=== PATIENT | male | born 1985 | race Caucasian/White ===

== ENCOUNTER 2021-11-11 00:42 | Emergency (ER) | payer MEDICAID, OTHER ==
[~2021-11-11] VITALS: Ht 172.7 cm; Wt 81.6 kg
--- NOTE | 2021-11-11 01:00 | NUR ---
BIBSELF C/O SI WITH NO PLAN. REQUESTING [facility] ADMISSION. PT A/OX3. TOLERATING R/A WELL WITH NO SOB. PT IN GOWN, BELONGINGS PLACED IN STORAGE ROOM, AND WANDED BY SECURITY. PT AMBULATORY WITH STEADY GAIT. ALL NEEDS MET AT THIS TIME. SAFETY MEASURES IN PLACE.
[2021-11-11 01:28] LABS: BASOPHILS % (AUTO) 0.4 % (0.0-2.0); EOSINOPHILS % (AUTO) 1.6 % (0.0-6.0); HEMATOCRIT 44 % (39-51); LYMPHOCYTES # (AUTO) 1.9 K/uL (0.8-4.8); MEAN CORPUSCULAR HGB CONC 34 g/dl (31.0-36.0); MEAN CORPUSCULAR VOLUME 92 fL (80-96); MONOCYTES # (AUTO) 0.5 K/uL (0.1-1.30); MONOCYTES % (AUTO) 5.8 % (2.0-12.0); NEUTROPHILS # (AUTO) 5.5 K/uL (1.8-8.9); NEUTROPHILS % (AUTO) 68.2 % (43.0-81.0); PLATELET COUNT (AUTO) 192 K/uL (150-450); RED BLOOD CELL COUNT(AUTO) 4.76 MIL/uL (4.5-6.0); WHITE BLOOD COUNT (AUTO) 8.1 K/uL (4.3-11.0)
[2021-11-11 01:45] LABS: ALBUMIN 4.2 g/dL (3.4-5.0); BILIRUBIN,DIRECT 0.1 mg/dL (0.0-0.2); BILIRUBIN,TOTAL 0.3 mg/dL (0.2-1.0); CALCIUM, SERUM 8.8 mg/dL (8.5-10.1); POTASSIUM 3.8 mmol/L (3.5-5.1); TOTAL PROTEIN, SERUM 7.6 g/dL (6.4-8.2)
--- NOTE | 2021-11-11 02:05 | NUR ---
Note janieone in EDM - 11/11/21 at 0206 by SHAMAR ELKIN C/O SI WITH NO PLAN. [facility]. PT A/OX3. TOLERATING R/A WELL WITH NO SOB. PT IN GOWN, BELONGINGS PLACED IN STORAGE ROOM, AND WANDED BY SECURITY. PT AMBULATORY WITH STEADY GAIT. ALL NEEDS MET AT THIS TIME. SAFETY MEASURES IN PLACE.
[2021-11-11] MEDS ORDERED: ARIPIPRAZOLE 5 MG TABLET PO ONE (02:30)
[2021-11-11] MEDS ORDERED: ARIPIPRAZOLE 2 MG TABLET ONE (02:33)
--- NOTE | 2021-11-11 07:19 | NUR ---
URINE SAMPLE OBTAINED AND SENT TO LAB
--- NOTE | 2021-11-11 08:23 | NUR ---
THE PATIENT IS RECEIVED IN ER #18. THE PATIENT IS ALERT AND ORIENTED X4. DENIES PAIN. IN ROOM AIR AND DENIES SOB. RESPIRATION REGULAR AND UNLABORED. THE PATIENT IS SERVED BREAKFAST. JAVIER FOOD WELL.
[2021-11-11 08:42] LABS: BILIRUBIN,URINE SMALL (NEGATIVE); COLOR,URINE YELLOW (YELLOW); LEUKOCYTE ESTERASE ,URINE NEGATIVE (NEGATIVE); NITRITE, URINE NEGATIVE (NEGATIVE); PROTEIN,URINE NEGATIVE (NEGATIVE); UGLUCOSE NEGATIVE (NEGATIVE); UROBILINOGEN,URINE 0.2 EU/dL (0.2)
[2021-11-11 09:17] LABS: RBC,URINE 0-2 /HPF (0-2)
[2021-11-11 09:18] LABS: BACTERIA,URINE Few /HPF (None Seen)
--- NOTE | 2021-11-11 10:37 | NUR ---
SS consult: SS Consult requested for SI, homelessness & drug abuse. The pt. is a 36-year-old male patient who came into ED due to: suicidal ideation & homicidal ideation per EMR. Upon SS consult, the pt. is Alert & Oriented x 4 and makes good eye contact. The pt. appears well-groomed with depressed mood & affect. Pt.'s speech is clear. Per pt. he states he is having thoughts of suicide with no plan. Pt. has homicidal thoughts with no specific person in mind. Per pt. he also has auditory hallucinations, not commanding. SW offered patient voluntary admission to psychiatric facility for treatment and pt. is agreeable. SW explored pt.'s living situation. Patient states he has been experiencing homelessness for the past 5 years and stays in the [facility]. SW explored pt.'s mental health Hx. Patient stated that he has been diagnosed with Major Depression, PTSD, Schizoaffective disorder. Pt. states he has been prescribed Maupin, Prozac and Abilify but is non-compliant with the medications. SW provided resources for homelessness and pt. accepted them. SW explored pt.'s drug & ETOH use. Pt. states he uses Methamphetamine, Heroin, Cannabinoids and alcohol use. This group social worker provided support with motivational interviewing, along with education regarding opioid dependence, brief intervention and referral to treatment. SW offered pt. addiction resources and the following medication assisted treatment and pt. accepted them. [facility]: [address] [place] [address] Intake hours: 5:45am-9:00am, walk-ins Tuesday, Tuesday, [facility]: [address] [place] [address] Intake hours: 5:45am-12:30pm, Tuesday and [facility]: [address] [place] [address] Intake hours: 8:00am-2:00pm, Tuesday through Tuesday Pt. states he has tried MAT treatment before and is not currently interested. Pr. is currently in the relapse stage of change. Per pt. she is ambulatory and independent with all his ADL's. CM explored pt.'s support system. Pt. states his brother, Balbir Christianson [phone] is his support system. Plan: CM faxed clinicals to [facility] [[address] [place] [address] FAX:[phone]] for inpatient psychiatric treatment. Pt. was provided with mental health, homeless resources and addiction resources and pt. accepted them. Pt. signed homeless waiver and it was placed in the chart. Year-round shelters: [facility] [place] [address] ; [facility] [address] [place] [address]; [facility] [id number] [facility] [address] Hygiene: [facility] [address] [address] [facility]. [place] ; [facility] [address] [facility] ; [facility] [address] [facility] . Food Resources: [place] [facility] at [facility]- [address] [facility]; Meet Each Need with Dignity ([facility]) [address] [facility]; [facility] [address] [facility]; [facility] 8521 [facility]. Mental Health resources provided: [facility] [address] [place] [address] ; [facility] [address] [facility] [address], [place] [address] ; [place] [facility] [address] [place] [address] ; [facility] [address] [place] [address] Healthcare Clinics: [facility] [address] [facility], [address] [place]. [place] ; [facility] [address] [facility] [address] [facility] [address]; [facility] [address] [facility] [place] [address] [phone] Counseling--Outpatient [facility] [address] [facility], [place] [address] (Specializes in in-depth psychotherapy for emotional distress: anxiety, depression, interpersonal conflicts, life transitions, childhood abuse) [facility] [address] [place] [address] (Assist with solving problem marital difficulties, separation & divorce, aging parents, & grief, chronic & terminal illness) [facility] [address] [place] [address] (Deal with loss & grief, anxiety, marital difficulties) Homebound/Mental Health Services [address] [facility] [address] [place] [address] (Provide in-home mental services to people who are incapable of leaving their homes) [facility] of [facility] Elderly [facility] [address] [place] [address] [facility] [address] [facility] [place] [address] PSYCHIATRIC OUTPATIENT SERVICES [facility] Partial Hospitalization and Intensive Outpatient Program (Managed Care and [place] Only)[address] [place]. [facility] [phone] [facility] Partial Hospitalization and Outpatient [id number] [facility]. [address] [place], [place] [phone] [facility] [address] [place], [place] [phone] [facility] Partial Hospitalization and Outpatient Grukktx75056 [facility] [place], [phone] Substance Abuse resources provided included: [facility] Substance Abuse Self-Helpline ([facility]) ; C[facility]LP [address] [facility]. [place] [address] ; [facility] [address] [facility] [address] ; [facility] [address] [facility] [phone] ; [facility] [address] [facility] [phone] ; [facility] [address] [facility] [address] ; [facility] 901 [facility] [phone] ; [facility] Substance Abuse Helpline([facility] ; [facility] ; [facility] [place]; [facility] [place]; [facility] [place]; [facility] [place]; [place]; [facility] [place]; [facility]'s [place], [facility] [place]; Alcoholics Anonymous -SFV; Jd-Srcf-Opuqwtt ; Marijuana Anonymous -SFV; Narcotics Anonymous www.na.org;
--- NOTE | 2021-11-11 10:53 | NUR ---
CM faxed clinicals to [facility] [[address] [place] [address] [place], [place] [address]FDJLYTJ TEL:[phone] fax:[phone] ] for voluntary psychiatric treatment. Per [facility] they have received clinicals.
--- NOTE | 2021-11-11 13:20 | NUR ---
patient verbalized "i am not suicidal or homicidal". MD notified and aware.
[2021-11-11 13:25] VITALS: BP 118/77
--- NOTE | 2021-11-11 13:42 | NUR ---
Patient given written and verbal discharge instructions. Patient verbalizes understanding of instructions. Patient is ambulatory with steady gait. Refuses offer of long term placement. Patient given list of available shelters in surrounding area.
== END 2021-11-11 13:28 | disposition home or self-care (01) ==
LOC: ER 00:45
DX: R45.851 Suicidal ideations (principal); F31.9 Bipolar disorder, unspecified; F43.10 Post-traumatic stress disorder, unspecified; Z91.14 Patient's other noncompliance with medication regimen; F11.20 Opioid dependence, uncomplicated; F15.20 Other stimulant dependence, uncomplicated; F20.9 Schizophrenia, unspecified; Z59.00 Homelessness unspecified
CPT/HCPCS: 36415; 80048; 80076; 80143; 80307; 80320; 81001; 85025; 87086; 87426; 99285; C9803; G0480

== ENCOUNTER 2022-02-15 13:04 | Emergency (ER) | payer OTHER ==
[~2022-02-15] VITALS: Ht 172.7 cm; Wt 79.4 kg
--- NOTE | 2022-02-15 13:15 | NUR ---
CALLED IN ED WAITING ROOM, STATES NOT READY.
--- NOTE | 2022-02-15 13:19 | NUR ---
DEPRESSED, ANXIOUS, "NO SLEEP X 7 DAYS." ADMIT TO METH AND HEROIN USE REQUESTING HALDOL SHOT. DENIES SI AND HI. DR GARCÍA AT BEDSIDE. AWAITING MD ORDERS.
[2022-02-15] MEDS ORDERED: LORAZEPAM 1 MG TABLET ONE (13:26)
[2022-02-15] MEDS ORDERED: LORAZEPAM 1 MG TABLET PO ONE (13:30)
--- NOTE | 2022-02-15 13:31 | NUR ---
EDUARDA COLLECTED AND SENT
[2022-02-15 14:35] LABS: BASOPHILS % (AUTO) 0.7 % (0.0-2.0); EOSINOPHILS % (AUTO) 1.3 % (0.0-6.0); HEMATOCRIT 43 % (39-51); HEMOGLOBIN 14.6 g/dL (13.5-17.5); LYMPHOCYTES # (AUTO) 1.2 K/uL (0.8-4.8); MEAN CORPUSCULAR HGB CONC 34 g/dl (31.0-36.0); MEAN CORPUSCULAR VOLUME 92 fL (80-96); MONOCYTES # (AUTO) 0.4 K/uL (0.1-1.30); MONOCYTES % (AUTO) 6.7 % (2.0-12.0); NEUTROPHILS # (AUTO) 4.4 K/uL (1.8-8.9); NEUTROPHILS % (AUTO) 71.3 % (43.0-81.0); PLATELET COUNT (AUTO) 228 K/uL (150-450); RED BLOOD CELL COUNT(AUTO) 4.63 MIL/uL (4.5-6.0); WHITE BLOOD COUNT (AUTO) 6.1 K/uL (4.3-11.0)
[2022-02-15 15:16] LABS: ALANINE AMINOTRANSFERASE 26 U/L (12-78); ALBUMIN 4.1 g/dL (3.4-5.0); ALCOHOL, BLOOD < 3 mg/dL (0-0); ALKALINE PHOSPHATASE 63 U/L (46-116); ASPARTATE AMINOTRANSFERASE 18 U/L (15-37); BILIRUBIN,DIRECT 0.1 mg/dL (0.0-0.2); BILIRUBIN,TOTAL 0.4 mg/dL (0.2-1.0); CALCIUM, SERUM 9.2 mg/dL (8.5-10.1); CARBON DIOXIDE 24 mmol/L (21-32); CHLORIDE 101 mmol/L (98-107); GLUCOSE 104 mg/dL (74-106); TOTAL PROTEIN, SERUM 7.7 g/dL (6.4-8.2); UREA NITROGEN, BLOOD 12 mg/dL (7-18)
[2022-02-15 15:17] LABS: POTASSIUM 3.4 mmol/L (3.5-5.1); SODIUM SERUM 134 mmol/L (136-145)
[2022-02-15 15:19] LABS: ACETAMINOPHEN 0 ug/ml (10-30)
--- NOTE | 2022-02-15 16:13 | NUR ---
Patient discharged to home in stable condition. Written and verbal after care instructions given. Patient verbalizes understanding of instruction.
[2022-02-15 16:14] VITALS: BP 133/77
== END 2022-02-15 16:14 | disposition home or self-care (01) ==
LOC: ER 13:06
DX: F19.10 Other psychoactive substance abuse, uncomplicated (principal); F31.9 Bipolar disorder, unspecified; F43.10 Post-traumatic stress disorder, unspecified
CPT/HCPCS: 99283; 85025; 80048; 80076; 36415; 87426; 80143; 80320; C9803; G0480

== ENCOUNTER 2022-02-27 14:08 | Emergency (ER) | payer OTHER ==
[~2022-02-27] VITALS: Ht 172.7 cm; Wt 81.6 kg
--- NOTE | 2022-02-27 14:20 | NUR ---
CALLED TO TRIAGE, NO ANSWER
--- NOTE | 2022-02-27 14:35 | NUR ---
TO ER BED 18, BIBS FOR MEDICAL CLEARANCE FOR SOCAL VNYS, DENIES SI/HI, AAOX3, BREATHING EVEN AND NON LABORED, CHANGED INTO A GOWN, WANDING PERFORMED, AWAITING MD ORDERS.
--- NOTE | 2022-02-27 16:00 | NUR ---
UNABLE TO GIVE URINE AT THIS TIME
[2022-02-27 16:11] LABS: BASOPHILS # (AUTO) 0.1 K/uL (0.0-0.2); EOSINOPHILS % (AUTO) 0.8 % (0.0-6.0); HEMATOCRIT 43 % (39-51); HEMOGLOBIN 14.3 g/dL (13.5-17.5); LYMPHOCYTES # (AUTO) 2.3 K/uL (0.8-4.8); LYMPHOCYTES % (AUTO) 30.2 % (20.0-44.0); MEAN CORPUSCULAR HGB CONC 34 g/dl (31.0-36.0); MEAN CORPUSCULAR VOLUME 94 fL (80-96); MONOCYTES # (AUTO) 0.6 K/uL (0.1-1.30); MONOCYTES % (AUTO) 7.3 % (2.0-12.0); NEUTROPHILS # (AUTO) 4.6 K/uL (1.8-8.9); NEUTROPHILS % (AUTO) 60.7 % (43.0-81.0); PLATELET COUNT (AUTO) 230 K/uL (150-450); RED BLOOD CELL COUNT(AUTO) 4.55 MIL/uL (4.5-6.0); WHITE BLOOD COUNT (AUTO) 7.6 K/uL (4.3-11.0)
--- NOTE | 2022-02-27 16:20 | NUR ---
DOES NOT WISH TO GO TO [facility] ANYMORE, MD PLATT MADE AWARE
--- NOTE | 2022-02-27 16:35 | NUR ---
Patient discharged to home in stable condition. Written and verbal after care instructions given. Patient verbalizes understanding of instruction.
[2022-02-27 16:42] VITALS: BP 136/92
[2022-02-27 16:43] LABS: ALANINE AMINOTRANSFERASE 32 U/L (12-78); ALBUMIN 4.1 g/dL (3.4-5.0); ALCOHOL, BLOOD < 3 mg/dL (0-0); ALKALINE PHOSPHATASE 82 U/L (46-116); ASPARTATE AMINOTRANSFERASE 27 U/L (15-37); BILIRUBIN,DIRECT 0.2 mg/dL (0.0-0.2); BILIRUBIN,TOTAL 0.6 mg/dL (0.2-1.0); CALCIUM, SERUM 8.6 mg/dL (8.5-10.1); CARBON DIOXIDE 28 mmol/L (21-32); CHLORIDE 102 mmol/L (98-107); GLUCOSE 98 mg/dL (74-106); POTASSIUM 3.8 mmol/L (3.5-5.1); SODIUM SERUM 137 mmol/L (136-145); TOTAL PROTEIN, SERUM 7.5 g/dL (6.4-8.2); UREA NITROGEN, BLOOD 16 mg/dL (7-18)
[2022-02-27 17:01] LABS: CREATININE 1.1 mg/dL (0.6-1.3)
[2022-02-27 17:02] LABS: ACETAMINOPHEN < 10 ug/ml (10-30)
== END 2022-02-27 16:43 | disposition home or self-care (01) ==
LOC: ER 14:12
DX: Z04.6 Encounter for general psychiatric examination, requested by authority (principal); F32.A Depression, unspecified; F20.9 Schizophrenia, unspecified; F17.200 Nicotine dependence, unspecified, uncomplicated
CPT/HCPCS: 36415; 80048-TC; 80076-TC; 85025-TC; G0480

== ENCOUNTER 2022-04-01 16:45 | Emergency (ER) | payer OTHER ==
[~2022-04-01] VITALS: Ht 172.7 cm; Wt 74.8 kg
--- NOTE | 2022-04-01 16:50 | NUR ---
called to triage,patient wants to smoke first,not ready to come in
[2022-04-01] MEDS ORDERED: diphenhydrAMINE HCL 50 MG/ML VIAL ONE (17:21)
[2022-04-01] MEDS ORDERED: HALOPERIDOL LACTATE INJ 5 MG/ML VIAL ONE (17:21)
[2022-04-01] MEDS ORDERED: LORAZEPAM INJ 2 MG/ML VIAL ONE (17:22)
[2022-04-01] MEDS ORDERED: LORAZEPAM INJ 2 MG/ML VIAL IM ONE (17:30)
[2022-04-01] MEDS ORDERED: HALOPERIDOL LACTATE INJ 5 MG/ML VIAL IM ONE (17:30)
[2022-04-01] MEDS ORDERED: diphenhydrAMINE HCL 50 MG/ML VIAL IM ONE (17:30)
--- NOTE | 2022-04-01 19:45 | NUR ---
[facility]URANCE AT PT'S BEDSIDE
[2022-04-01 20:06] LABS: CALCIUM, SERUM 8.7 mg/dL (8.5-10.1); CARBON DIOXIDE 26 mmol/L (21-32); CHLORIDE 107 mmol/L (98-107); CREATININE 0.8 mg/dL (0.6-1.3); GLUCOSE 95 mg/dL (74-106); POTASSIUM 3.7 mmol/L (3.5-5.1); SODIUM SERUM 140 mmol/L (136-145); UREA NITROGEN, BLOOD 18 mg/dL (7-18)
[2022-04-01 20:09] LABS: BASOPHILS % (AUTO) 0.4 % (0.0-2.0); EOSINOPHILS % (AUTO) 1.6 % (0.0-6.0); HEMATOCRIT 41 % (39-51); LYMPHOCYTES # (AUTO) 2.1 K/uL (0.8-4.8); LYMPHOCYTES % (AUTO) 30.9 % (20.0-44.0); MEAN CORPUSCULAR HGB CONC 34 g/dl (31.0-36.0); MEAN CORPUSCULAR VOLUME 92 fL (80-96); MONOCYTES # (AUTO) 0.5 K/uL (0.1-1.30); MONOCYTES % (AUTO) 7.5 % (2.0-12.0); NEUTROPHILS # (AUTO) 4.1 K/uL (1.8-8.9); NEUTROPHILS % (AUTO) 59.6 % (43.0-81.0); PLATELET COUNT (AUTO) 181 K/uL (150-450); RED BLOOD CELL COUNT(AUTO) 4.42 MIL/uL (4.5-6.0); WHITE BLOOD COUNT (AUTO) 6.8 K/uL (4.3-11.0)
[2022-04-01 20:11] LABS: ALANINE AMINOTRANSFERASE 40 U/L (12-78); ALBUMIN 3.8 g/dL (3.4-5.0); ALCOHOL, BLOOD < 3 mg/dL (0-0); ALKALINE PHOSPHATASE 94 U/L (46-116); ASPARTATE AMINOTRANSFERASE 46 U/L (15-37); BILIRUBIN,DIRECT 0.1 mg/dL (0.0-0.2); BILIRUBIN,TOTAL 0.5 mg/dL (0.2-1.0); TOTAL PROTEIN, SERUM 6.9 g/dL (6.4-8.2)
[2022-04-01 20:12] LABS: ACETAMINOPHEN 0 ug/ml (10-30)
[2022-04-01 20:20] VITALS: BP 114/82
[2022-04-01 20:21] LABS: BILIRUBIN,URINE NEGATIVE (NEGATIVE); COLOR,URINE YELLOW (YELLOW); LEUKOCYTE ESTERASE ,URINE NEGATIVE (NEGATIVE); NITRITE, URINE NEGATIVE (NEGATIVE); PROTEIN,URINE NEGATIVE (NEGATIVE); UGLUCOSE NEGATIVE (NEGATIVE); UROBILINOGEN,URINE 0.2 EU/dL (0.2)
--- NOTE | 2022-04-01 22:27 | NUR ---
CLINICALS FAXED TO [facility]
--- NOTE | 2022-04-01 23:18 | NUR ---
PT ACCEPTED AT [facility] UNDER THE CARE OF DR. CARL. CALL [phone] FOR REPORT.
--- NOTE | 2022-04-02 01:43 | NUR ---
[facility] ETA 20-30 MIN
--- NOTE | 2022-04-02 01:44 | NUR ---
REPORT GIVEN TO BRAULIO BURGESS FROM [facility] FOR NING
--- NOTE | 2022-04-02 02:42 | NUR ---
REPORT GIVEN TO [facility] FOR PT TO DC TO [facility]. VSS. ALL BELONGINGS WITH PT.
== END 2022-04-02 02:52 ==
LOC: ER 16:48
DX: R45.851 Suicidal ideations (principal); F20.9 Schizophrenia, unspecified; F19.10 Other psychoactive substance abuse, uncomplicated; F31.9 Bipolar disorder, unspecified; F17.200 Nicotine dependence, unspecified, uncomplicated; Z20.822 Contact with and (suspected) exposure to COVID-19
CPT/HCPCS: 99285; 96372 ×2; 85025; 80048; 80076; 81003; 36415; 87426; 80143; 80320; 80307; J2060; J1200; J1630; C9803; G0480

== ENCOUNTER 2022-08-16 18:55 | Emergency (ER) | payer OTHER ==
[~2022-08-16] VITALS: Ht 172.7 cm; Wt 81.6 kg
--- NOTE | 2022-08-16 19:46 | NUR ---
BIBRA 881 AND [employer] FOR SI. [employer] IS PLACING PT ON 5150 HOLD. PT A/OX4. TOLERATING R/A WELL WITH NO RESP DISTRESS. AMB WITH STEADY GAIT. PT CHANGED IN GOWN, BELONGINGS IN LOCKER, WANDED BY SECURITY. SAFETY MEASURES IN PA LCE.
--- NOTE | 2022-08-16 20:14 | NUR ---
OFFERED PT URINE CUP, UNABLE TO OBTAIN URINE
--- NOTE | 2022-08-16 20:14 | NUR ---
COVID ANTIGEN COLLECTED AND SENT TO LAB
[2022-08-16 20:54] LABS: BASOPHILS % (AUTO) 0.4 % (0.0-2.0); EOSINOPHILS % (AUTO) 1.3 % (0.0-6.0); HEMATOCRIT 48 % (39-51); HEMOGLOBIN 15.9 g/dL (13.5-17.5); LYMPHOCYTES # (AUTO) 2.1 K/uL (0.8-4.8); LYMPHOCYTES % (AUTO) 23.8 % (20.0-44.0); MEAN CORPUSCULAR HGB CONC 33 g/dl (31.0-36.0); MEAN CORPUSCULAR VOLUME 94 fL (80-96); MONOCYTES # (AUTO) 0.5 K/uL (0.1-1.30); NEUTROPHILS % (AUTO) 68.5 % (43.0-81.0); PLATELET COUNT (AUTO) 246 K/uL (150-450); RED BLOOD CELL COUNT(AUTO) 5.09 MIL/uL (4.5-6.0); WHITE BLOOD COUNT (AUTO) 8.8 K/uL (4.3-11.0)
[2022-08-16 21:09] LABS: CALCIUM, SERUM 9.6 mg/dL (8.5-10.1); CARBON DIOXIDE 30 mmol/L (21-32); CHLORIDE 101 mmol/L (98-107); CREATININE 1.1 mg/dL (0.6-1.3); GLUCOSE 96 mg/dL (74-106); POTASSIUM 3.9 mmol/L (3.5-5.1); SODIUM SERUM 138 mmol/L (136-145); UREA NITROGEN, BLOOD 16 mg/dL (7-18)
[2022-08-16 21:13] LABS: ALANINE AMINOTRANSFERASE 40 U/L (12-78); ALBUMIN 4.4 g/dL (3.4-5.0); ALCOHOL, BLOOD < 3 mg/dL (0-0); ALKALINE PHOSPHATASE 84 U/L (46-116); ASPARTATE AMINOTRANSFERASE 26 U/L (15-37); BILIRUBIN,DIRECT 0.1 mg/dL (0.0-0.2); BILIRUBIN,TOTAL 0.4 mg/dL (0.2-1.0); TOTAL PROTEIN, SERUM 8.2 g/dL (6.4-8.2)
[2022-08-16 21:20] LABS: ACETAMINOPHEN 0 ug/ml (10-30)
--- NOTE | 2022-08-16 21:24 | NUR ---
URINE COLLECTED AND SENT TO LAB
[2022-08-16 22:45] LABS: BILIRUBIN,URINE NEGATIVE (NEGATIVE); COLOR,URINE YELLOW (YELLOW); LEUKOCYTE ESTERASE ,URINE NEGATIVE (NEGATIVE); NITRITE, URINE NEGATIVE (NEGATIVE); PROTEIN,URINE NEGATIVE (NEGATIVE); UGLUCOSE NEGATIVE (NEGATIVE)
[2022-08-16 22:52] LABS: BACTERIA,URINE None seen /HPF (None Seen); RBC,URINE 0-2 /HPF (0-2); WBC,URINE 0-2 /HPF (0-3)
[2022-08-16 22:53] LABS: MUCUS,URINE Few /LPF (None Seen)
[2022-08-16 22:54] LABS: URINE AMORPHOUS PHOSPHATES Moderate /HPF (None Seen)
--- NOTE | 2022-08-17 02:04 | NUR ---
jacob beth at [facility] side
[2022-08-17] MEDS ORDERED: OLANZAPINE 5 MG TABLET PO ONE (02:30)
[2022-08-17] MEDS ORDERED: OLANZAPINE 5 MG TABLET ONE (02:50)
--- NOTE | 2022-08-17 06:33 | NUR ---
PT SLEEPING IN BED RR EVEN AN NON LABORED.
--- NOTE | 2022-08-17 11:10 | NUR ---
patient took his medication GENVOYA 1TAB PO WHEN ASKED WHAT ARE HIS MEDICATIONS IS HE TAKING. hE MENTIONED IT IS TAKEN ONE TAB DAILY
--- NOTE | 2022-08-17 15:31 | NUR ---
NASH FROM [facility] CALLED [phone] AWAITING DISCHARGES
--- NOTE | 2022-08-18 05:23 | NUR ---
PT SLEEPING IN BED RR EVEN AND NON LABORED.
--- NOTE | 2022-08-18 06:08 | NUR ---
RECIEVED CALL FROM [facility] SAID SHE IS STILL AWAITING DISCHARGES AND WILL CALL BACK WITH UPDATES
--- NOTE | 2022-08-18 07:20 | NUR ---
RECEIVED PT FROM NIRMAL RN PT PT AWAKE AND ALERT COOPRATIVE ON 51508/16/22 [id number] FOR ADANGER TO HIMSELF [facility] FOR [facility]PTING [facility]IT[facility]
--- NOTE | 2022-08-18 08:00 | NUR ---
EAT BERAKFAST NO COMPLAIN
--- NOTE | 2022-08-18 11:00 | NUR ---
Placement update: CM fax[facility] clinical[facility] TEL: [phone] Intake [facility] tel:[phone] FAX: [phone]
--- NOTE | 2022-08-18 12:53 | NUR ---
CM notified that [facility] requesting new rapid and PCR COVID test. CM notified [facility].
--- NOTE | 2022-08-18 15:29 | NUR ---
CM notified ED again that [facility] requesting new rapid and PCR COVID test.
--- NOTE | 2022-08-18 15:35 | NUR ---
covid rapid and pcr swabs taken and sent to lab
--- NOTE | 2022-08-18 16:34 | NUR ---
PT REFUSED VS TO CHECKED
--- NOTE | 2022-08-18 16:39 | NUR ---
Pt. was [facility] [facility] [address] TEL: [phone] [facility] room 141B under the care of Dr. Garvin. SW notified ED to arrange transport and call in nurse to nurse report to tel: [phone].
--- NOTE | 2022-08-18 16:53 | NUR ---
[facility]ED [facility] FOR TRANSPORT ETA 1800
--- NOTE | 2022-08-18 17:29 | NUR ---
report given to facility and to Edmond BURGESS for continuation of care
[2022-08-18 18:15] VITALS: BP 134/90
== END 2022-08-18 18:35 ==
LOC: ER 19:00
DX: R45.851 Suicidal ideations (principal); F19.10 Other psychoactive substance abuse, uncomplicated; F20.9 Schizophrenia, unspecified; F31.9 Bipolar disorder, unspecified; Z20.822 Contact with and (suspected) exposure to COVID-19; Z88.8 Allergy status to other drugs, medicaments and biological substances
CPT/HCPCS: 99285; 85025; 80048; 80076; 81001; 36415; 87426; 80143; 80320; 80307; C9803 ×2; U0003; G0480

== ENCOUNTER 2023-03-02 06:18 | Emergency (ER) | payer OTHER ==
[2023-03-02] MEDS ORDERED: NALO4SPR BNOSTRILS (06:36)
== END 2023-03-02 06:39 | disposition left against medical advice (07) ==
LOC: ER 06:22
DX: F15.10 Other stimulant abuse, uncomplicated (principal); F31.9 Bipolar disorder, unspecified; F20.9 Schizophrenia, unspecified